=== PATIENT | female | born 1950 | race Caucasian/White ===

== ENCOUNTER 2017-10-20 09:01 | Day surgery (SDC) | payer MEDICARE, BC ==
[2017-10-20] MEDS ORDERED: ACETAZOLAMIDE 250 MG PO ONE (09:09)
[2017-10-20] MEDS: PROPARACAINE HCL 0.5% OPHTHALMIC SOL ONE ×3 (09:22→10:42)
[2017-10-20] MEDS: PHENYLEPHRINE HCL 10% OPHTHAL SOL ONE ×2 (09:24→09:39)
[2017-10-20] MEDS: CYCLOPENTOLATE 1% SOL ONE ×2 (09:25→09:39)
[2017-10-20] MEDS: KETOROLAC 0.5% OPTH 60 DROP SOL ONE ×2 (09:26→09:40)
[2017-10-20] MEDS ORDERED: MIDAZOLAM 2 MG/2 ML SOL ONE (09:31)
[2017-10-20 09:32] VITALS: RESP 20
[2017-10-20] MEDS ORDERED: LIDOCAINE HCL 1% MPF SOL ONE (10:35)
[2017-10-20] MEDS ORDERED: BSS 500 ML 500 ML IR ONE (10:35)
[2017-10-20] MEDS ORDERED: POVIDONE IODINE 5% SOL ONE (10:35)
[2017-10-20 11:15] VITALS: BP 134/66; PULSE 83; TEMP 97.4; O2SAT 99
== END 2017-10-20 11:34 | disposition home or self-care (01) | DRG 125 ==
LOC: SURG 09:01
PROVIDERS: ATTEND Ophthalmology
DX: H25.9 Unspecified age-related cataract (principal)
CPT/HCPCS: J2250; J2001